=== PATIENT | male | born 1940 | race Caucasian/White ===

== ENCOUNTER 2021-06-22 10:01 | Outpatient (CLI) | payer MEDICARE, BC | END 2021-06-22 10:02 | disposition home or self-care (01) | LOC: CSHMRI 10:01 | PROVIDERS: ATTEND Urology | DX: R97.20 Elevated prostate specific antigen [PSA] (principal) | CPT/HCPCS: 72197; 82565 ==

== ENCOUNTER 2021-06-27 10:28 | Outpatient (CLI) | payer MEDICARE, BC | END 2021-06-27 10:29 | disposition home or self-care (01) | LOC: CSHMRI 10:28 | PROVIDERS: ATTEND Anesthesiology Pain Medicine | DX: M54.16 Radiculopathy, lumbar region (principal); M47.816 Spondylosis without myelopathy or radiculopathy, lumbar region | CPT/HCPCS: 72148 ==

== ENCOUNTER 2022-04-22 16:49 | Inpatient (IN) | payer MEDICARE, BC ==
[2022-04-22 17:02] LABS: #Eosinphils 0.1 10x3/uL (0.0-0.5); #Neutrophils 4.3 10x3/uL (1.5-8.4); %Basophils 0.4 % (0.0-2.0); %Eosinophils 1.1 % (0.0-6.0); %Lymphocytes 30.7 % (18.0-47.0); %Neutrophils 54.5 % (40.0-75.0); Hemoglobin 15.4 g/dL (13.5-17.5); Mean Corpuscular HGB CONC 35.2 g/dL (32.0-36.0); Mean Corpuscular Hemoglobin 32.2 pg (27.0-33.0); Mean Corpuscular Volume 91.4 fl (81.2-95.1); Mean Platelet Volume 11.8 fl (7.4-10.4); Platelet Count 199 10x3/uL (150-450); RBC Distribution Width 12.5 % (11.5-14.5); Red Blood Cell (RBC) Count 4.79 10x6/uL (4.32-5.72); White Blood Cell (WBC) Count 7.9 10x3/uL (3.5-10.5)
[2022-04-22 17:30] LABS: ALT (SGPT) 18 U/L (8-55); AST (SGOT) 22 U/L (5-34); Alkaline Phosphatase 64 U/L (40-110); Anion Gap 16 mmol/L (10-20); BUN (Urea Nitrogen) 13 mg/dL (8.4-25.7); Bilirubin, Total 0.7 mg/dL (0.2-1.2); Calc. Creatinine Clearance 0 mL/min (70-130); Calcium 9.3 mg/dL (7.8-10.44); Carbon Dioxide 22 mmol/L (23-31); Chloride 100 mmol/L (98-107); Estimated GFR 71; Globulin 2.3 g/dL (2.4-3.5); Glucose 154 mg/dL (83-110); Potassium 3.9 mmol/L (3.5-5.1); Protein, Total 6.3 g/dL (5.8-8.1); Sodium 134 mmol/L (136-145)
[2022-04-22] MEDS ORDERED: Meclizine HCl 25 MG TAB ONE (17:51)
[2022-04-22] MEDS ORDERED: Acetaminophen 325 MG TAB PO PRN (20:47)
[2022-04-22] MEDS ORDERED: Senokot S 8.6-50 MG TAB PO PRN (20:47)
[2022-04-22] MEDS ORDERED: Guaifenesin DM 100-10/5 ML UDCUP PO PRN (20:47)
[2022-04-22] MEDS ORDERED: Ondansetron PF 4 MG/2 ML Vial IVP PRN (20:47)
[2022-04-22] MEDS ORDERED: Calcium Carbonate 500 MG ChewTAB PO PRN (20:47)
[2022-04-22] MEDS ORDERED: Sodium Chloride 0.9% 500 ML IV SCH (21:00)
[2022-04-22 21:01] LABS: SARS-CoV-2 NAA Rapid Test Not Detected (NotDetected)
[2022-04-22] MEDS ORDERED: Lisinopril 10 MG TAB PO SCH (21:30)
[2022-04-22 21:41] VITALS: BMI 30.2
[2022-04-22] MEDS: Famotidine/PF 20 mg/2ml Vial SLOW IVP SCH (23:00)
[2022-04-22] MEDS: Meclizine HCl 12.5 MG TAB PO SCH (23:03)
[2022-04-23 04:42] LABS: Clarity Clear (Clear)
[2022-04-23 04:43] LABS: Glucose, Urine (Dipstick) Negative (Negative); Ketone, Urine Negative (Negative); Leukocyte Negative (Negative); Nitrite Negative (Negative); Protein, Urine (Dipstick) Negative (Neg-Trace)
[2022-04-23 04:44] LABS: Bilirubin Negative (Negative); Blood, Urine Negative (Negative); Urobilinogen Normal mg/dL (Less than 2)
[2022-04-23 04:53] LABS: RBC/HPF None Seen HPF (0-3)
[2022-04-23 04:54] LABS: Bacteria/HPF None Seen HPF (None Seen); Squamous Epithelial None Seen HPF (0-3); WBC/HPF 0-3 HPF (0-3)
[2022-04-23 06:04] LABS: Anion Gap 14 mmol/L (10-20); BUN (Urea Nitrogen) 10 mg/dL (8.4-25.7); Calc. Creatinine Clearance 90 mL/min (70-130); Calcium 9.2 mg/dL (7.8-10.44); Carbon Dioxide 20 mmol/L (23-31); Chloride 102 mmol/L (98-107); Estimated GFR 85; Glucose 113 mg/dL (83-110); Magnesium 1.9 mg/dL (1.6-2.6); Potassium 4.1 mmol/L (3.5-5.1); Sodium 132 mmol/L (136-145)
[2022-04-23] MEDS: Enoxaparin Sodium 40 MG/0.4 ML SYRINGE SC SCH (09:04)
[2022-04-23] MEDS: Lisinopril 20 MG TAB PO SCH (09:04)
[2022-04-23] MEDS: Meclizine HCl 12.5 MG TAB PO SCH (09:04)
[2022-04-23] MEDS: Famotidine/PF 20 mg/2ml Vial SLOW IVP SCH ×2 (09:04→21:31)
[2022-04-24 05:19] LABS: #Eosinphils 0.2 10x3/uL (0.0-0.5); #Neutrophils 4.2 10x3/uL (1.5-8.4); %Basophils 0.4 % (0.0-2.0); %Lymphocytes 26.1 % (18.0-47.0); %Neutrophils 57.2 % (40.0-75.0); Hemoglobin 15.1 g/dL (13.5-17.5); Mean Corpuscular HGB CONC 34.8 g/dL (32.0-36.0); Mean Corpuscular Volume 91.9 fl (81.2-95.1); Mean Platelet Volume 11.7 fl (7.4-10.4); Platelet Count 183 10x3/uL (150-450); Red Blood Cell (RBC) Count 4.72 10x6/uL (4.32-5.72); White Blood Cell (WBC) Count 7.4 10x3/uL (3.5-10.5)
[2022-04-24 05:39] LABS: ALT (SGPT) 15 U/L (8-55); AST (SGOT) 18 U/L (5-34); Albumin 3.6 g/dL (3.4-4.8); Alkaline Phosphatase 52 U/L (40-110); Anion Gap 14 mmol/L (10-20); BUN (Urea Nitrogen) 11 mg/dL (8.4-25.7); Bilirubin, Total 0.6 mg/dL (0.2-1.2); Calc. Creatinine Clearance 80 mL/min (70-130); Carbon Dioxide 21 mmol/L (23-31); Cardiac Risk 6.2 (Less than 4.5); Chloride 103 mmol/L (98-107); Cholesterol 205 mg/dl (< 200 Desired); Estimated GFR 73; Globulin 2.5 g/dL (2.4-3.5); Glucose 109 mg/dL (83-110); HDL Cholesterol 33 mg/dL (>60 Neg Risk); LDL Cholesterol, Calculated 130 mg/dL; Potassium 4.4 mmol/L (3.5-5.1); Protein, Total 6.1 g/dL (5.8-8.1); Sodium 134 mmol/L (136-145); Triglycerides 211 mg/dL (Less than 150)
[2022-04-24] MEDS: Lisinopril 20 MG TAB PO SCH (10:06)
[2022-04-24] MEDS: Enoxaparin Sodium 40 MG/0.4 ML SYRINGE SC SCH (10:06)
[2022-04-24] MEDS: Famotidine/PF 20 mg/2ml Vial SLOW IVP SCH (10:11)
[2022-04-24] MEDS ORDERED: Meclizine HCl 12.5 MG TAB PO PRN (10:31)
[2022-04-24 13:17] LABS: Hemoglobin A1c 6.1 % (4.0-6.0)
[2022-04-24 13:23] VITALS: BP 146/67; TEMP 98.1
== END 2022-04-24 13:32 | disposition home or self-care (01) | DRG 149 ==
LOC: CSHERS 16:49 → INTOOBSV 21:17 → CSHTELE 21:17 → OBSVTOIN 04-24 11:38
PROVIDERS: ADMIT Student in an Organized Health Care Education/Training Program; ATTEND Family Medicine
DX: R42 Dizziness and giddiness (principal); I10 Essential (primary) hypertension; E78.1 Pure hyperglyceridemia; C61 Malignant neoplasm of prostate; H55.09 Other forms of nystagmus; R73.03 Prediabetes; R00.1 Bradycardia, unspecified; Z96.652 Presence of left artificial knee joint; R11.2 Nausea with vomiting, unspecified; Z79.899 Other long term (current) drug therapy; Z98.890 Other specified postprocedural states; Z86.718 Personal history of other venous thrombosis and embolism; Z90.89 Acquired absence of other organs; Z82.49 Family history of ischemic heart disease and other diseases of the circulatory system
CPT/HCPCS: 36415; 70450; 70551; 80048; 80053; 80061; 81001; 83036; 83735; 84443; 84484; 85025; 93005; 93306; 93880; 96372; 96374; 96375; 96376; G0378; J1650; J2405; J7030; S0028; U0002